=== PATIENT | female | born 1940 | race Caucasian/White ===

== ENCOUNTER 2016-08-18 21:32 | Emergency (ER) | payer MEDICARE, BC ==
[~2016-08-18 21:32] MED LIST: ACET500CAP PO; ALBUTEROL5 INH; AMB10 PO; AMB5 PO; AMOXIL500 MG PO; ASAB PO; AT25 PO; AUG500 PO; BEN25 PO; BYSTOLIC10 MG PO; BYSTOLIC5 MG PO; CAT1 PO; CELEXA20 PO; CLONIDINE; COREG25 PO; COZ50 PO; COZAAR100 MG PO; FLEXERIL5 MG PO; IBU800 PO; LEVAQUIN750 MG PO; LEVOTHYROXIN; LEVOTHYROXIN100 MCG PO; LEVOTHYROXIN75 MCG PO; LIPITOR40 PO; LISINOPRIL; LORTAB; MELA3 PO; MOTRIN IB200 MG PO; MULTIVIT/MIN PO; NEUR300 PO; NORCO1 TA1 PO; NORCO1 TAB PO; NORV5 PO; P125 PO; P20 PO; PHENTERMINE37.5 M1 PO; PREMARIN; PRILO PO; PRILOSEC40 MG PO; PRIN20 PO; PROAIR HFA INH; PROTONIX PO; PROVENTSOL INH; PROVHFA INH; REG PO; REM15 PO; SUCR PO; SYMBICORT 160/41 INH INH; SYN.025B PO; SYN1 PO; SYN112 PO; SYN125 PO; T PO; TESS PO; TESSALON200 MG PO; ULTRAM50 PO; UNK BP MED; VOLT75 PO; X5 PO; ZITH250 PO; ZOFRAN4 PO; [UNRECOGNIZED DRUG - OTHER]; [UNRECOGNIZED DRUG - REMARK]
[2016-11-06] MEDS ORDERED: WELLXL150 PO (22:15)
[2016-11-06] MEDS ORDERED: REM15 PO (22:16)
[2016-11-06] MEDS ORDERED: AMOXIL500 MG PO (22:16)
[2016-11-06] MEDS ORDERED: PHENTERMINE37.5 M1 PO (22:16)
[2016-11-06] MEDS ORDERED: ULTRAM50 PO ×2 (22:17→22:18)
[2016-11-06] MEDS ORDERED: NORV5 PO (22:18)
[2016-11-06] MEDS ORDERED: SYN125 PO (22:18)
[2016-11-06] MEDS ORDERED: COZAAR100 MG PO (22:18)
[2016-11-06] MEDS ORDERED: PROAIR HFA INH (22:19)
[2016-11-10] MEDS ORDERED: NORCO1 TA1 PO (14:47)
[2016-11-30] MEDS ORDERED: LIPITOR40 PO (15:14)
[2016-11-30] MEDS ORDERED: BUM1 PO (15:15)
[2016-11-30] MEDS ORDERED: OMNICEF300 PO (15:16)
[2016-11-30] MEDS ORDERED: LOP25 PO (15:17)
[2016-11-30] MEDS ORDERED: Z-PAK PO (15:18)
[2016-11-30] MEDS ORDERED: P20 PO (15:18)
[2016-11-30] MEDS ORDERED: DUONEB INH (15:23)
[2016-11-30] MEDS ORDERED: DULERA 200 MCG/13 GM INH (15:24)
== END 2016-08-19 02:25 | disposition home or self-care (01) ==
LOC: ER 21:32
PROC: 0PSQXZZ Reposition Left Metacarpal, External Approach (ICD-10-PCS; principal; 2016-08-18)
DX: S62.317A Displaced fracture of base of fifth metacarpal bone, left hand, initial encounter for closed fracture (principal); J45.909 Unspecified asthma, uncomplicated; J44.9 Chronic obstructive pulmonary disease, unspecified; I10 Essential (primary) hypertension; K21.9 Gastro-esophageal reflux disease without esophagitis; Z87.01 Personal history of pneumonia (recurrent); Z79.891 Long term (current) use of opiate analgesic; Z79.52 Long term (current) use of systemic steroids; Z79.899 Other long term (current) drug therapy; W18.30XA Fall on same level, unspecified, initial encounter
CPT/HCPCS: 73110-LT; 73130-LT; 99284